=== PATIENT | female | born 1995 | race Two or more races ===

== ENCOUNTER → 2018-05-21 13:51 | Outpatient (CLI) | payer OTHER, SELFPAY ==
[2018-05-21 18:47] LABS: Chlamydia Trachomatis by PCR Negative (Negative); Neisserai gonorrhoeae by PCR Negative (Negative); Probe Check PASS; Sample Adequacy Control PASS; Specimen Processing Control PASS
== END ==
PROVIDERS: Visit Provider Obstetrics & Gynecology
DX: Z11.3 Encounter for screening for infections with a predominantly sexual mode of transmission (principal)
CPT/HCPCS: 87491; 87591

== ENCOUNTER → 2018-06-19 21:52 | Outpatient (CLI) | payer OTHER, SELFPAY ==
[2018-06-23 12:08] LABS: HPV Reflexed? NOT INDICATED
--- OUTSIDE RECORDS SUMMARY | 2018-08-15 04:48 | XMS RPT_ITS | Clinical Summary ---
:1995 Author Organization [facility] Address [address] [place] [address] Phone Care Team Providers Name Role Phone Johanna Hardwick LPN Unavailable Unavailable Conditions or Problems Problem Name Problem Onset Status Entry Provider Comment Standard Annotate Code Date Date Description Toxic effect T63.464A Active / Shoaib Klein Toxic effect of venom of (ICD-10-CM 13 13 Lin BARRAZA of venom of wasps, ) wasps, undetermined undetermined, , initial initial encounter encounter Medications Medication Instructions Start Stop Generic Name NDC Provider Date Date EXCEDRIN Take as / ASPIRIN-ACETAMINOP [id number] Shoaib Klein MIGRAINE directed 13 HEN-CAFFEINE Lin BARRAZA 250-250-65 MG TABS BENADRYL take as / DIPHENHYDRAMINE [id number] Shoaib Klein ALLERGY TABS directed 13 HCL TABS Lin BARRAZA Medications Administered No information available. Allergies, Adverse Reactions, Alerts No information available. Results Date Name Value Unit Range Flag Description Office Visit: UC: [place] ALCOHOLCOUNS no Alcoholism counseling (procedure) ORALTOBACUSE Never Tobacco smoking status NHIS SMOK STATUS Never smoker Tobacco use [facility] Plan of Care Type Date Detail Appointment 11:30 AM Shoaib BARRAZA, [address] [place] [address], [address], [place], [address], Procedures No information available. Vital Signs Date Name Value Unit Description Body Temperature 98.5 [degF] temperature E&M BP Diastolic 62 mm[Hg] blood pressure, diastolic - 8462-4 BP Systolic 90 mm[Hg] blood pressure, systolic - 8480-6 Heart Rate 92 /min pulse rate E&M - 8867-4 Height 64 [in_us] height E&M - 8302-2 Respiratory Rate 16 /min respiratory rate E&M - 9279-1 Weight Measured 116.4 [lb_av] weight E&M - 3141-9
--- OUTSIDE RECORDS SUMMARY | 2018-08-15 04:48 | XMS RPT_ITS | Clinical Summary ---
:1995 Author Organization [facility] Address [address] [place] [address] Phone Care Team Providers Name Role Phone [...] Date Date EXCEDRIN Take as / ASPIRIN-ACETAMINOP [id number] Shoaib Klein MIGRAINE directed 13 HEN-CAFFEINE Lni BARRAZA 250-250-65 MG TABS BENADRYL take as / DIPHENHYDRAMINE [id number] Shoaib Klein ALLERGY TABS directed 13 HCL TABS Lin BARRAZA Medications Administered No information available. Allergies, Adverse Reactions, Alerts No information available. Results Date Name Value Unit Range Flag Description Office Visit: UC: Wasp St[place] ALCOHOLCOUNS no Alcoholism counseling (procedure) ORALTOBACUSE Never Tobacco smoking status NHIS SMOK STATUS Never smoker Tobacco use [facility] Plan of Care Type Date Detail Appointment 11:30 AM Shoaib BARRAZA, [address] [place] [address], [address], [place], [address], Procedures No information available. Vital Signs Date [...]
--- OUTSIDE RECORDS SUMMARY | 2018-08-15 04:48 | XMS RPT_ITS | Clinical Summary ---
:1995 Author Organization [facility] Address [facility] [place] [address] Phone Care Team Providers Name Role Phone [...] Date Date EXCEDRIN Take as / ASPIRIN-ACETAMINOP [id number] Shoaib Klein MIGRAINE directed 13 HEN-CAFFEINE Lin BARRAZA 250-250-65 MG TABS BENADRYL take as / DIPHENHYDRAMINE [id number] Shoaib Klein ALLERGY TABS directed 13 HCL TABS Lin BARRAZA Medications Administered No information available. Allergies, Adverse Reactions, Alerts No information available. Results Date Name Value Unit Range Flag Description Office Visit: UC: Wasp Sting ALCOHOLCOUNS no Alcoholism counseling (procedure) ORALTOBACUSE Never Tobacco smoking status NHIS SMOK STATUS Never smoker Tobacco use [facility] Plan of Care No information available. Procedures No information available. Vital Signs Date [...]
--- OUTSIDE RECORDS SUMMARY | 2018-08-15 04:48 | XMS RPT_ITS ---
:1995 Author Organization OHIP Care Team Providers Name Role Phone DENNISE MCLAUGHLIN CNM Attending Unavailable DAYDAY KIMBALL MD Primary Care Unavailable DENNISE MCLAUGHLIN CNM Attending Unavailable DAYDAY KIMBALL MD Primary Care Unavailable JAGRUTI JONAS MD Attending Unavailable DAYDAY KIMBALL MD Primary Care Unavailable JAGRUTI JONAS MD Admitting Unavailable COLUMBA DELAROSA MD Consulting Unavailable MARISOL BARRY MD Consulting Unavailable Dylan Mendez Attending Unavailable Dylan Mendez Attending Unavailable PROBLEMS PROBLEMS DATE TYPE CONDITION / CODE ATTENDING STATUS SOURCE 06/19/2018 Unknown Z12.4 - Encounter Seals, Dylan Active [facility] for screening for Community malignant neoplasm Hospital of cervix / Repository Z12.4(ICD-10) 05/21/2018 Unknown Z11.3 - Encounter Dylan Mendez Active [place] for screening for Community infections with a Hospital predominantly Repository sexual mode of transmission / Z11.3(ICD-10) PROCEDURES PROCEDURES No Procedure Records FoundRESULTS RESULTS PAP I-G W/RFX HRHPV Collected: 06/19/2018 Status: F Source: [place] 4:20 PM [facility] REPOSITORY Order Comment: CYTOLOGY INFORMATION: - CLINICAL INFORMATION: - DATE LMP/MENOPAUSE: 06/16/18 LMP - COLLECTION VIAL: Thin Prep Vial - STUDENT WORKER SOURCE: CERVICAL/ENDOCERVICAL - COLLECTION TECHNIQUE: BRUSH/SPATULA Specimen Comment: [id number] Specimen Comment: Source.............Cervix;Endocervix Specimen Comment: LMP / Prev Treat...[id number]=[id number] Specimen Comment: No. of containers..01 ThinPrep Vial TYPE CODE TESTS RESULT OUT OF RANGE REFERENCE UNITS LAB L7400.0800 . Normal DIAGN Comment Result Comment: NEGATIVE FOR INTRAEPITHELIAL LESION AND MALIGNANCY. LAB L7400.0900 . Normal ADEQ Comment Result Comment: Satisfactory for evaluation. Endocervical and/or squamous metaplastic cells (endocervical component) are present. LAB L7400.1400 . Normal PERFORM Comment Result Comment: Selene Franks, Tension Machine Operator (ASCP) LAB L7400.2575 . Normal TEST METHOD Comment Result Comment: This liquid based ThinPrep(R) pap test was screened with the use of an image guided system. LAB L7400.2600 . Normal . COMM LAB L7400.2700 . Normal PAPSMR Comment Result Comment: The Pap smear is a screening test designed to aid in the detection of premalignant and malignant conditions of the uterine cervix. It is not a diagnostic procedure and should not be used as the sole means of detecting cervical cancer. Both false-positive and false-negative reports do occur. LAB L7400.2800 . Normal HPV RFLX Comment Result Comment: The HPV DNA reflex criteria were not met with this specimen result therefore, no HPV testing was performed. Performed at: [address] [id number] It Applications Manager: Sallie Thomas MD, Phone: [phone] Performed By: #### L7400.0350 #### [facility] (refer to report for specific site) refer to report for address and phone number CT/NG [facility] BY PCR Collected: 05/21/2018 Status: F Source: [place] 1:00 PM [facility] [place] TYPE CODE TESTS RESULT OUT OF RANGE REFERENCE UNITS LAB L8200.2100 Negative Normal Chlam Negative Trac PCR LAB L8200.2200 Negative Normal NG by Negative PCR Performed By: #### L8200.1999 #### [facility] [address] [place], [place], [address] CBC Collected: 11/28/2017 Status: F Source: [facility] 3:52 AM [facility] REPOSITORY TYPE CODE TESTS RESULT OUT OF REFERENCE UNITS RANGE LAB WBC(LOINC) 4.50-10.80 10 3/mcL High WBC 24.70 LAB RBCCT(LOINC 4.10-5.30 10 6/mcL ) Low RBC 3.17 LAB HGB(LOINC) 12.0-16.0 G/dL Low Hgb 9.1 LAB HCT(LOINC) 34.0-46.0 % Low Hct 26.9 LAB MCV(LOINC) 80.0-99.0 fL MCV 84.8 LAB MCH(LOINC) 27.0-33.0 pg MCH 28.8 LAB MCHC(LOINC) 32.0-36.0 G/dL MCHC 34.0 LAB RDW(LOINC) 11.5-15.5 % RDW 13.2 LAB PLT(LOINC) 150-450 10 3/mcL Platelet 321 LAB MPV(LOINC) 6.6-10.5 fL MPV 8.1 Performed By: #### CBC, ANEU, ADHARISH, MORPH #### [place] [address] .MORPH Collected: 11/28/2017 Status: F Source: [facility] 3:52 AM [facility] REPOSITORY TYPE CODE TESTS RESULT OUT OF REFERENCE UNITS RANGE LAB PLTE(LOINC ) Platelet Estimate Normal LAB ANIS(LOINC ) Anisocytosis Slight LAB POIK(LOINC ) Poik Slight LAB HYPC(LOINC ) Hypochrom Slight LAB POLC(LOINC ) Polychrom Slight LAB TEAR(LOINC ) Tear Cell Rare Performed By: #### CBC, ANEU, ADIFF, MORPH #### [place] [address] .AUTO DIFF Collected: 11/28/2017 Status: F Source: [facility] 3:52 AM [facility] REPOSITORY TYPE CODE TESTS RESULT OUT OF REFERENCE UNITS RANGE LAB EMMA(LOINC) 50.0-75.0 % High Neutrophil % 80.4 LAB LYM(LOINC) 20.0-40.0 % Low Lymphocyte % 14.1 LAB MON(LOINC) 2.0-13.0 % Monocyte % 5.1 LAB EO(LOINC) 0.0-6.0 % Eosinophil % 0.3 LAB BAS(LOINC) 0.0-2.5 % Basophil % 0.1 LAB ABLYM(LOIN 0.90-4.32 10 3/mcL C) Lymphocyte, 3.50 Absolute LAB LESLYE(LOINC 0.09-1.40 10 3/mcL ) Monocyte, 1.30 Absolute LAB AEOS(LOINC 0.00-0.65 10 3/mcL ) Eosinophil, 0.10 Absolute LAB ABAS(LOINC 0.00-0.27 10 3/mcL ) Basophil, 0.00 Absolute Performed By: #### CBC, ANEU, ADIFF, MORPH #### [place] [address] .NEUABS Collected: 11/28/2017 Status: F Source: [facility] 3:52 AM [facility] REPOSITORY TYPE CODE TESTS RESULT OUT OF REFERENCE UNITS RANGE LAB ANEU(LOINC) 2.25-8.10 10 3/mcL High Neutrophil, 19.80 Absolute Performed By: #### CBC, ANEU, ADIFF, MORPH #### [place] [address] FINAL SURGICAL Observed: 11/27/2017 Status: F Source: [facility] PATHOLOGY REPORT 5:15 PM [facility] REPOSITORY . Pathology Reports Accession: Collected Date/Time: Received Date/Time: Pathologist: [id number] 11/27/2017 17:15 EDT 11/28/2017 07:50 EDT MD SHANNAN MONTEZ Final Surgical Pathology Report DIAGNOSIS: PLACENTA: - MODERATE ACUTE CHORIOAMNIONITIS AND FUNISITIS. - NO VILLITIS . CLINICAL INFORMATION: Procedure: SPONTANEOUS VAGINAL DELIVERY Preoperative diagnosis: PPROM Postoperative diagnosis: SAME SPECIMEN: A PLACENTA, THIRD - 30.0 WEEKS GROSS DESCRIPTION: Received in formalin labeled placenta is a 327 g, 16 x 14 x 2.5 cm placenta, weighed without the membranes and umbilical cord. The membranes are galarza-yellow, semi-translucent to opaque and appear complete. The umbilical cord is 18.5 x 1.1 cm and inserts paracentrally, 9 cm from the closest placental margin. Sectioning shows three vessels. The surface is very slightly opaque and displays unremarkable surface blood vessels. The maternal surface appears complete with a 4 x 4 centimeter area of somewhat adherent dark red blood clot at the periphery. Sectioning shows red soft and spongy cut surfaces. Tool And Die Supervisor sections are submitted in three cassettes. Dictated by ROBIN BARRAZA ([facility]) MICROSCOPIC DESCRIPTION: Slides reviewed. Electronically Signed by Pathology Report verified by [facility] Electronically signed by SHANNAN MONTEZ MD Sign out Date: 11/29/2017 14:06 Performing Lab: [address] Performed By: #### SPFR #### [place] [address] MG Collected: 11/25/2017 Status: F Source: [facility] 4:11 PM [facility] REPOSITORY TYPE CODE TESTS RESULT OUT OF RANGE REFERENCE UNITS LAB MG(LOINC) 1.6-2.4 mg/dL Abnormal Alert Magnesium Lvl 5.4 Performed By: #### MG #### [place] [address] CBC Collected: 11/25/2017 Status: F Source: [facility] 9:15 AM [facility] REPOSITORY TYPE CODE TESTS RESULT OUT OF REFERENCE UNITS RANGE LAB WBC(LOINC) 4.50-10.80 10 3/mcL High WBC 12.10 LAB RBCCT(LOINC 4.10-5.30 10 6/mcL ) Low RBC 3.20 LAB HGB(LOINC) 12.0-16.0 G/dL Low Hgb 9.3 LAB HCT(LOINC) 34.0-46.0 % Low Hct 27.7 LAB MCV(LOINC) 80.0-99.0 fL MCV 86.5 LAB MCH(LOINC) 27.0-33.0 pg MCH 28.9 LAB MCHC(LOINC) 32.0-36.0 G/dL MCHC 33.4 LAB RDW(LOINC) 11.5-15.5 % RDW 13.0 LAB PLT(LOINC) 150-450 10 3/mcL Platelet 278 LAB MPV(LOINC) 6.6-10.5 fL MPV 8.2 Performed By: #### CBC, ANEU, ADIFF #### [place] [address] .AUTO DIFF Collected: 11/25/2017 Status: F Source: [facility] 9:15 AM [facility] REPOSITORY TYPE CODE TESTS RESULT OUT OF REFERENCE UNITS RANGE LAB EMMA(LOINC) 50.0-75.0 % High Neutrophil % 76.5 LAB LYM(LOINC) 20.0-40.0 % Low Lymphocyte % 14.9 LAB MON(LOINC) 2.0-13.0 % Monocyte % 7.9 LAB EO(LOINC) 0.0-6.0 % Eosinophil % 0.4 LAB BAS(LOINC) 0.0-2.5 % Basophil % 0.3 LAB ABLYM(LOIN 0.90-4.32 10 3/mcL C) Lymphocyte, 1.80 Absolute LAB LESLYE(LOINC 0.09-1.40 10 3/mcL ) Monocyte, 1.00 Absolute LAB AEOS(LOINC 0.00-0.65 10 3/mcL ) Eosinophil, 0.00 Absolute LAB ABAS(LOINC 0.00-0.27 10 3/mcL ) Basophil, 0.00 Absolute Performed By: #### CBC, ANEU, ADIFF #### [place] [address] .NEUABS Collected: 11/25/2017 Status: F Source: [facility] 9:15 AM [facility] REPOSITORY TYPE CODE TESTS RESULT OUT OF REFERENCE UNITS RANGE LAB ANEU(LOINC) 2.25-8.10 10 3/mcL High Neutrophil, 9.20 Absolute Performed By: #### CBC, ANEU, ADIFF #### [place] [address] TABO Collected: 11/25/2017 Status: F Source: [facility] 9:15 AM [facility] REPOSITORY TYPE CODE TESTS RESULT OUT OF RANGE REFERENCE UNITS LAB ABORH(LOINC ) Unknown ABO/Rh O POS Interp Performed By: #### ANTIS, ABORH #### [place] [address] TABS Collected: 11/25/2017 Status: F Source: [facility] 9:15 AM [facility] REPOSITORY TYPE CODE TESTS RESULT OUT OF REFERENCE UNITS RANGE LAB ANST(LOINC ) Antibody Negative ABSC Screen Tango Performed By: #### ANTIS, ABORH #### [place] [address] CTPCR Collected: 11/25/2017 Status: F Source: [facility] 9:15 AM [facility] REPOSITORY TYPE CODE TESTS RESULT OUT OF REFERENCE UNITS RANGE LAB SCCTPCR(SAM NC) Chlam Cervix Source LAB CTPCR1(LOIN Negative C) Negative C.trachomati s PCR Result Comment: Molecular (PCR) assay performed on the Thelma Akshat 4800 system. LAB CTINT(LOINC) See CT Interp N C. trachomatis Interp Result Comment: C. trachomatis DNA not detected. Specimen is presumptive negative for C. trachomatis. A negative result does not preclude C. trachomatis infection because results depend on adequate specimen collection, absence of inhibitors, and sufficient DNA to be detected. See CT Interp N Performed By: #### NGPCR1, CTPCR #### [place] [address] NGPCR Collected: 11/25/2017 Status: F Source: [facility] 9:15 AM [facility] REPOSITORY TYPE CODE TESTS RESULT OUT OF REFERENCE UNITS RANGE LAB GCSRC(LOIN C) GC PCR Source Cervix LAB NGPCR(LOIN Negative C) N. gonorrhoeae (PCR) Negative Result Comment: Molecular (PCR) assay performed on the Thelma Akshat 4800 System. LAB NGINT(LOINC) See NG Interp N N. gonorrhoeae Interp Result Comment: N. gonorrhoeae DNA not detected. Specimen is presumptive negative for N. gonorrhoeae. A negative result does not preclude Neisseria gonorrhoeae infection because results depend on adequate specimen collection, absence of inhibitors, and sufficient DNA to be detected. See NG Interp N Performed By: #### NGPCR1, CTPCR #### [place] [address] Observed: 11/25/2017 Status: F Source: [facility] GBPCR 9:15 AM [facility] REPOSITORY . MICRO - Microbiology PROCEDURE: Group B Strep PCR [*1] SOURCE: Vaginal Rectal BODY SITE: COLLECTED DATE/TIME: 11/25/2017 09:15 EDT RECEIVED DATE/TIME: 11/25/2017 10:01 EDT START DATE/TIME: 11/25/2017 10:01 EDT FREE TEXT SOURCE: FINAL REPORTS Final Report [] Verified Date/Time/Personnel: 11/26/2017 11:33 EDT GBS NEGATIVE. Group B Streptococcus DNA not detected by Real-Time. Polymerase Chain Reaction (PCR). A negative result does not rule out the possibility of Group B Streptococcus False negative results may occur when Group B Streptococcus concentration is below the level of detection of 200 CFU/mL of sample preparation reagent. If the patient has signs or symptoms of infection, other laboratory tests and clinical information should be used to confirm the negative result. This test is not intended to differentiate carriers of Group B Streptococcus from those with Streptococcus disease. Performing Locations *1: This test was performed at: [facility], [address] [place] [address], [address] [place] [address] Performed By: #### GBPCR #### [place] [address] CBC Collected: 07/25/2017 Status: F Source: [facility] 9:38 AM [facility] REPOSITORY TYPE CODE TESTS RESULT OUT OF REFERENCE UNITS RANGE LAB WBC(LOINC) 4.60-10.80 10 3/mcL WBC 8.20 LAB RBCCT(LOINC 4.20-5.40 10 6/mcL ) RBC 4.21 LAB HGB(LOINC) 12.0-16.0 G/dL Low Hgb 11.8 LAB HCT(LOINC) 37.0-47.0 % Low Hct 35.8 LAB MCV(LOINC) 80.0-94.0 fL MCV 85.0 LAB MCH(LOINC) 27.0-31.2 pg MCH 28.1 LAB MCHC(LOINC) 33.0-37.0 G/dL MCHC 33.1 LAB RDW(LOINC) 11.5-14.5 % RDW 14.0 LAB PLT(LOINC) 130-400 10 3/mcL Platelet 307 LAB MPV(LOINC) 7.4-10.4 fL MPV 8.7 Performed By: #### RPR, HBSAG, VARIS, RUBIS #### [place] [address] #### CBC, ANEU, TSH, ADIFF, HIVRP, ANSG, ABOG #### [place] [address] [place], [place] [address] .AUTO DIFF Collected: 07/25/2017 Status: F Source: [facility] 9:38 AM [facility] REPOSITORY TYPE CODE TESTS RESULT OUT OF REFERENCE UNITS RANGE LAB EMMA(LOINC) 37.0-80.0 % Neutrophil % 65.1 LAB LYM(LOINC) 10.0-50.0 % Lymphocyte % 30.2 LAB MON(LOINC) 1.7-13.0 % Monocyte % 3.3 LAB EO(LOINC) 0.0-7.0 % Eosinophil % 1.2 LAB BAS(LOINC) 0.0-2.5 % Basophil % 0.2 LAB ABLYM(LOIN 0.77-3.85 10 3/mcL C) Lymphocyte, 2.50 Absolute LAB LESLYE(LOINC 0.15-1.00 10 3/mcL ) Monocyte, 0.30 Absolute LAB AEOS(LOINC 0.00-0.40 10 3/mcL ) Eosinophil, 0.10 Absolute LAB ABAS(LOINC 0.00-0.19 10 3/mcL ) Basophil, 0.00 Absolute Performed By: #### RPR, HBSAG, VARIS, RUBIS #### [place] [address] #### CBC, ANEU, TSH, ADIFF, HIVRP, ANSG, ABOG #### [place] [address] [place], [place] [address] .NEUABS Collected: 07/25/2017 Status: F Source: [facility] 9:38 AM [facility] REPOSITORY TYPE CODE TESTS RESULT OUT OF REFERENCE UNITS RANGE LAB ANEU(LOINC) 2.85-6.16 10 3/mcL Neutrophil, 5.30 Absolute Performed By: #### RPR, HBSAG, VARIS, RUBIS #### [place] [address] #### CBC, ANEU, TSH, ADIFF, HIVRP, ANSG, ABOG #### [address] [address] TSH Collected: 07/25/2017 Status: F Source: [facility] 9:38 AM [facility] REPOSITORY TYPE CODE TESTS RESULT OUT OF RANGE REFERENCE UNITS LAB TSH(LOINC) 0.27-4.20 mcIU/mL TSH 1.57 Performed By: #### RPR, HBSAG, VARIS, RUBIS #### [place] [address] #### CBC, ANEU, TSH, ADIFF, HIVRP, ANSG, ABOG #### [address] [address] GEL ABO Collected: 07/25/2017 Status: F Source: [facility] 9:38 [facility] REPOSITORY TYPE CODE TESTS RESULT OUT OF RANGE REFERENCE UNITS LAB ABORH(LOINC ) Unknown ABO/Rh O POS Interp Performed By: #### RPR, HBSAG, VARIS, RUBIS #### [place] [address] #### CBC, ANEU, TSH, ADIFF, HIVRP, ANSG, ABOG #### [address] [address] GEL ABS Collected: 07/25/2017 Status: F Source: [facility] 9:38 [facility] REPOSITORY TYPE CODE TESTS RESULT OUT OF REFERENCE UNITS RANGE LAB ANSG(LOINC ) Antibody Negative ABSC Screen Gel Performed By: #### RPR, HBSAG, VARIS, RUBIS #### [place] [address] #### CBC, ANEU, TSH, ADIFF, HIVRP, ANSG, ABOG #### [address] [address] HIVRP Collected: 07/25/2017 Status: F Source: [facility] 9:38 [facility] REPOSITORY TYPE CODE TESTS RESULT OUT OF RANGE REFERENCE UNITS LAB HIVRO(LOIN Non-Reactive C) Rapid HIV 1/2 Antibody Non-Reactive LAB HIVROI(SAM NC) Unknown RHIV 1/2 Ab Int Non-Reactive LAB HIVAG(LOIN Non-Reactive C) HIV p24 Antigen Non-Reactive LAB P24AGI(SAM NC) Unknown HIV P24 Int Non-reactive LAB [id number](LOINC) QC RHIV Valid Performed By: #### RPR, HBSAG, VARIS, RUBIS #### [place] [address] #### CBC, ANEU, TSH, ADIFF, HIVRP, ANSG, ABOG #### [address] [address] VARIS Collected: 07/25/2017 Status: F Source: [facility] 9:38 [facility] REPOSITORY TYPE CODE TESTS RESULT OUT OF REFERENCE UNITS RANGE LAB VARIS(LOIN C) Varicella Imm Pos St Result Comment: This immune status assay detects antibody to Varicella Zoster virus. Interpret results in conjunction with clinical history. Positive: Reactive for antibodies to Varicella IgG. If clinically indicated, order Varicella IGM to rule out recent infection. Equivocal: Equivocal for antibodies to Varicella IgG. Suggest repeat testing in 10-14 days. Negative: Non-reactive for antibodies to Varicella IgG. Sera will be held 4-6 weeks if further testing is required. Performed By: #### RPR, HBSAG, VARIS, RUBIS #### [place] [address] #### CBC, ANEU, TSH, ADIFF, HIVRP, ANSG, ABOG #### [address] [address] RUBIS Collected: 07/25/2017 Status: F Source: [facility] 9:38 [facility] REPOSITORY TYPE CODE TESTS RESULT OUT OF REFERENCE UNITS RANGE LAB RUBIS(LOIN Positive C) Rubella Imm Positive St Result Comment: This immune status assay detects IgM and/or IgG antibody to Rubella. Interpret results in conjunction with clinical history. POS: Antibody detected; exposure at undetermined recent or distant time. If clinically indicated, order Rubella IGM to rule out recent infection. NEG: No antibody detected. Performed By: #### RPR, HBSAG, VARIS, RUBIS #### [place] [address] #### CBC, ANEU, TSH, ADIFF, HIVRP, ANSG, ABOG #### [address] [address] RPR Collected: 07/25/2017 Status: F Source: [facility] 9:38 AM [facility] REPOSITORY TYPE CODE TESTS RESULT OUT OF RANGE REFERENCE UNITS LAB RPR(LOINC) Non-Reactive RPR Non-Reactive Result Comment: The RPR test is a non- treponemal assay useful as an aid in the diagnosis of primary and secondary syphilis. It converts to positive generally within 2 weeks after the appearance of a lesion. This test is also useful for monitoring response to antibiotic therapy. A positive RPR screening test will be followed by the FTA ABS test. False positive RPR tests may occur in 1) patients with underlying autoimmune disorders, 2) elderly patients, 3) , and 4) other conditions with abnormal serum globulins. Performed By: #### RPR, HBSAG, VARIS, RUBIS #### [address] [address] #### CBC, ANEU, TSH, ADIFF, HIVRP, ANSG, ABOG #### [place] [address] [place], [place] [address] HBSAG Collected: 07/25/2017 Status: F Source: [facility] 9:38 AM [facility] TYPE CODE TESTS RESULT OUT OF REFERENCE UNITS RANGE LAB HBSAG(LOINC Negative ) Hep B Negative Surf Ag Performed By: #### RPR, HBSAG, VARIS, RUBIS #### [address] [address] #### CBC, ANEU, TSH, ADIFF, HIVRP, ANSG, ABOG #### [place] [address] [place], [place] [address] ALLERGIES ALLERGIES No Allergies Records FoundENCOUNTERS ENCOUNTERS ADMIT/DISCHARGE ACCOUNT NUMBER ADMITTING ENCOUNTER LOCATION SOURCE CLASS 06/19/2018 [id number] Ambulatory [facility] ding:LABSPEC Repository 05/21/2018 [id number] Ambulatory [facility] ding:LABSPEC Repository 11/25/2017/11/30/19 [id number] SUMI VELIZ, Inpatient ABuilding:INDRA Welsh [facility] 08/02/2017/08/02/19 [id number] Ambulatory [address] ding:RAD Foundation Repository 07/25/2017/07/25/19 [id number] Ambulatory [address] ding:OLAB Foundation Repository PAYERS PAYERS ENCOUNTER GUARANTOR PAYER SUBSCRIBER SOURCE 06/19/2018 BRADLEY Primary Insurance:MED BRADLEYDREW [id number] [facility] [place] Number: [id number], [id number] [place]ository [place] [address]Fwn: . Date:[id number] () [address], [place] [address]PM: CHECK WEBSITE 06/19/2018 Secondary NOT GIVENUNK [place] Insurance:SELF PAY [facility] Number: Effective Repository Date:2018-06-19 05/21/2018 BRADLEY Primary Insurance:MED [place] [id number] [facility] [place] Number: [id number], [id number] [place]ository [place] [address]Kws: . Date:[id number] [address] () [address], [place] [address]XE: CHECK WEBSITE 05/21/2018 Secondary NOT GIVENUNK [place] Insurance:SELF PAY [facility] Number: Effective Repository Date:2018-05-21 11/25/2017 BRADLEY E Primary BRADLEY E [facility] STEINERDOB: Insurance:MEDICAL STEINERDOB: [facility] [id number] [place] [id number] Repository [place] Number: [address] [facility] [id number] [place], [place] Date:2017-11-25 - [place] [address]Rxo: [id number] [email or web address]: Name:RAFFY Pearson ()Tel: (330) [address] [place] [address] [phone] () ()Tel: [phone]: (WP) [phone] 08/02/2017 BRADLEY E Primary BRADLEY [facility]: Insurance:[facility]: [facility] [id number] [place] [id number] [id number] Repository [place] Number: [address] [place], [id number] [place] Date:2017-07-27 [address]Ejv: [address]~[place] [address] [id number] [email or web address]: Name:[employer] Box (HP)Tel: (330) [address] [place] [address] [phone] (WP) (HP)Tel: [phone]: ([phone] 07/25/2017 BRADLEY E Primary [facility]: [facility] [id number] [place] [id number] Repository [address] Number: [address] [place], [id number] [place] Date:2017-07-25 [id number]: [address]~[place] [address] [id number] [email or web address]: Name:[employer] Box (HP)Tel: (330) [address] [place] [address] [phone] (WP) (HP)Tel: [phone]: ([phone]
== END ==
PROVIDERS: Visit Provider Obstetrics & Gynecology
DX: Z12.4 Encounter for screening for malignant neoplasm of cervix (principal)
CPT/HCPCS: 88175; G0145

== ENCOUNTER → 2019-09-03 | Outpatient (CLI) | payer BC, SELFPAY ==
--- NOTE | 2019-09-03 16:30 | CER_PTH ---
PATIENT: BRADLEY WEISS LOC: [facility] U#:[id number] AGE/SX: 24/F ROOM: RE09/03/[address]: Dr. Teja Da Silva MD : 1995 BED: DIS: 09/03/2019 SPEC #: [id number] RECD: 09/03/19 18:03 STATUS: ARABELLA ROBIN #: [id number] HOSSEIN: 09/03/19 16:[address]: Teja Da Silva DEPT: SURGICAL PATHOLOGY RECD BY: Morales Wisdom Tissues: Uterine cervix, NOS Procedures: Surgery Specimen Level IV HEADER OPERATION: Cervical biopsy PRE-OP DIAGNOSIS: N93.0 TISSUE SUBMITTED: Cervical biopsy 6 o'clock MICROSCOPIC DIAGNOSIS Cervix at 6 o'clock, biopsy: Fragment of endocervix with mild chronic inflammation. AM:zane 09/05/19 MICROSCOPIC DESCRIPTION Slides are reviewed. GROSS DESCRIPTION Received in fixative is one container labeled with the patient's name and designated cervical biopsy at 6 o'clock. The specimen consists of one irregular fragment of light galarza soft tissue that measures 0.6 x 0.5 x 0.1 cm. The specimen is totally submitted in one cassette. / AM:zane 09/04/19 TC:3 CPT: 72826
[2019-09-03 18:46] LABS: Thyroid Stim Hormone (TSH) 2.29 uIU/mL (0.358-3.74)
[2019-09-09 15:11] LABS: HPV Reflexed? NOT INDICATED
== END | disposition home or self-care (01) ==
LOC: LABSPEC 17:19
PROVIDERS: Visit Provider Obstetrics & Gynecology
DX: N93.0 Postcoital and contact bleeding (principal); Z12.4 Encounter for screening for malignant neoplasm of cervix; R63.5 Abnormal weight gain
CPT/HCPCS: 84443; 88175; 88305; G0145

== ENCOUNTER → 2020-02-05 09:38 | Outpatient (CLI) | payer BC, SELFPAY | PROVIDERS: Visit Provider Otolaryngology | DX: Z11.59 Encounter for screening for other viral diseases (principal) | CPT/HCPCS: 87635; G2023; U0003 ==